=== PATIENT | female | born 1995 | race Hispanic/Latino ===

== ENCOUNTER 2018-06-05 19:06 | Emergency (ER) | payer BC ==
[2018-06-05] MEDS ORDERED: HYDROCODONE/ACETAMINOPHEN 5/325 MG TAB ONE (20:30)
== END 2018-06-05 20:50 | disposition home or self-care (01) ==
LOC: EDH 19:06
DX: S13.9XXA Sprain of joints and ligaments of unspecified parts of neck, initial encounter (principal); S40.012A Contusion of left shoulder, initial encounter; V49.49XA Driver injured in collision with other motor vehicles in traffic accident, initial encounter; Y93.89 Activity, other specified; Y92.89 Other specified places as the place of occurrence of the external cause; Y99.8 Other external cause status
CPT/HCPCS: 71045; 72040; 73000; 81025; 93005

== ENCOUNTER 2021-02-11 18:50 | Emergency (ER) | payer BC, OTHER ==
[~2021-02-11] VITALS: Ht 147.3 cm; Wt 67.6 kg
[2021-02-11 18:51] VITALS: BP 145/100
[2021-02-11] MEDS ORDERED: ACETAMINOPHEN WITH CODEINE 1 TAB TAB PO ONE (20:30)
[2021-02-11 21:31] VITALS: BP 106/64
[2021-02-11] MEDS ORDERED: CHLORPROMAZINE HCL 25 MG/ML 1ML AMP ONE (22:03)
[2021-02-11] MEDS ORDERED: CHLO25 PO (22:19)
[2021-02-11] MEDS ORDERED: CHLORPROMAZINE HCL 25 MG/ML 1ML AMP IM SCH (22:30)
== END 2021-02-11 22:37 | disposition home or self-care (01) ==
LOC: EDH 18:50
DX: R05 Cough (principal)
CPT/HCPCS: 71045; 81025; 96372; 99284; J3230; Q0161

== ENCOUNTER 2023-08-06 18:02 | Emergency (ER) | payer OTHER ==
[~2023-08-06] VITALS: Ht 144.8 cm; Wt 70.8 kg
[~2023-08-06 18:02] MED LIST: CHLO25 PO
[2023-08-06] MEDS ORDERED: KETOROLAC 30MG VIAL (30MG/ML) IM SCH (20:30)
[2023-08-06] MEDS ORDERED: ACETAMINOPHEN 500 MG TABLET PO ONE (20:30)
[2023-08-06] MEDS ORDERED: LIDOP TP (20:42)
[2023-08-06] MEDS ORDERED: IBUP-2070 PO (20:42)
[2023-08-06] MEDS ORDERED: CYCL10TA16 PO (20:42)
[2023-08-06 20:57] VITALS: BP 106/70; PULSE 75; RESP 16; O2SAT 99
== END 2023-08-06 21:01 | disposition home or self-care (01) ==
LOC: EDH 18:02
DX: M75.102 Unspecified rotator cuff tear or rupture of left shoulder, not specified as traumatic (principal); F32.A Depression, unspecified; F41.9 Anxiety disorder, unspecified; Z98.890 Other specified postprocedural states
CPT/HCPCS: 99284; 81025; 73030; 96372; J1885